=== PATIENT | male | born 1985 | race Caucasian/White ===

== ENCOUNTER 2018-09-16 19:35 | Emergency (ER) | payer SELFPAY ==
[2018-09-16] MEDS ORDERED: Sulfameth/Trimethoprim DS 800-160mg TAB ONE (21:12)
[2018-09-16] MEDS ORDERED: Cephalexin 250 MG CAP ONE (21:12)
== END 2018-09-16 21:21 | disposition home or self-care (01) ==
LOC: SCSER 19:35
DX: L03.115 Cellulitis of right lower limb (principal)
CPT/HCPCS: 10061